=== PATIENT | female | born 1990 | race Caucasian/White ===

== ENCOUNTER 2020-07-12 14:23 | Outpatient (CLI) | payer BC, SELFPAY ==
[2020-07-12 15:05] LABS: Hematocrit 35.1 % (37.0-47.0); Hemoglobin 11.9 g/dL (12.0-15.0); Mean Platelet Volume 9.7 fl (7.4-10.4); Platelet Count Result 242 k/mm3 (150-375)
[2020-07-12 15:47] LABS: Hemoglobin A1C 4.8 % (<5.7)
[2020-07-12 15:58] LABS: HIV 1/2 Ab P24 Ag Result Negative (Negative)
[2020-07-12 16:44] LABS: Rubella IgG Antibody 59.3 IU/ML
[2020-07-12 16:59] LABS: Hepatitis B Surface Anti Res Negative; Hepatitis C Virus Antibody Negative (Negative)
[2020-07-13 07:11] LABS: Rapid Plasma Reagin Non-Reactive (NonReactive)
== END 2020-07-12 14:24 | disposition home or self-care (01) ==
LOC: ANHLAB 14:28
PROVIDERS: PCP Family Medicine; Visit Provider Obstetrics & Gynecology
DX: Z36.89 Encounter for other specified antenatal screening (principal)
CPT/HCPCS: 36415; 83036; 85014; 85018; 85049; 86592; 86703; 86706; 86762; 86803; 86850; 86900; 86901; G0432

== ENCOUNTER 2021-01-03 09:30 | Outpatient (CLI) | payer BC, SELFPAY ==
[2021-01-03 10:26] VITALS: BP 125/77; PULSE 114
--- NOTE | 2021-01-03 11:38 | PC.NURSE ---
1025-S.Neli [facility] called, informed ROM plus is negative. Order received to set pt up for induction the evening on Jan 18 and discharge home now.
--- NOTE | 2021-01-03 11:39 | PC.NURSE ---
0930-Pt was sent over from the office for possible leaking of fluid. Order received for ROM plus and SVE.
--- NOTE | 2021-01-03 11:40 | PC.NURSE ---
1020-SVE is 1/50%
== END 2021-01-03 10:30 | disposition home or self-care (01) ==
LOC: ANHOBOP 10:15 → ANHOBPP 10:16
PROVIDERS: PCP Family Medicine; Visit Provider Obstetrics & Gynecology
DX: O42.90 Premature rupture of membranes, unspecified as to length of time between rupture and onset of labor, unspecified weeks of gestation (principal); Z3A.00 Weeks of gestation of pregnancy not specified
CPT/HCPCS: 59025; 84112; 99199

== ENCOUNTER 2021-01-17 10:09 | Inpatient (IN) | payer BC, SELFPAY ==
[2021-01-17] VITALS (194 sets, daily range): BP systolic 60–128; BP diastolic 37–97; PULSE 30–209; RESP 16; TEMP 36.4–37.4; O2SAT 77–100; BMI 32.5
--- NOTE | 2021-01-17 10:51 | LDADM ---
This patient, Heydi Owens, was admitted to Labor/Delivery/Recovery 106 on 01/17/21 at 10:09. Plans for labor, pain management and were discussed with patient. Patient/family oriented to hospital policies and general routines including ID bracelet, bed and alarms, visiting hours, pain management, procedures, bathroom and other care routines, personal items, smoking policy, room service/diet and guest tray routines, infant security routines, and visiting hours. Patient/Family are encouraged to report perceived risks to care and to ask questions if they do not understand what they are told or what they should do. See OBIX for further documentation.
[2021-01-17] MEDS: LACTATED RINGERS 1,000 ML 125 ML IV CONT ×2 (10:59→11:25)
[2021-01-17] MEDS: AMPICILLIN 2 GM/NS 100 ML 2 GM/100 ML BAG IVPB (11:00)
[2021-01-17 11:19] LABS: Basophils Absolute Auto 0.1 K/mm3 (0.0-0.1); Basophils Percent Auto 0.6 % (0.2-1.2); Eosinophils Absolute Auto 0.2 K/mm3 (0-0.3); Eosinophils Percent Auto 1.4 % (0-4.4); Hematocrit 38.6 % (37.0-47.0); Hemoglobin 12.5 g/dL (12.0-15.0); Immature Granulocyte Absolute 0.11 K/mm3 (0.00-0.031); Immature Granulocyte Percent A 0.9 % (0-0.5); Lymphocytes Absolute Auto 1.94 K/mm3 (0.9-3.2); Lymphocytes Percent Auto 16.5 % (18.3-44.2); Mean Corpuscular HGB Conc 32.4 g/dl (32-36); Mean Corpuscular Hemoglobin 29.7 pg (26-34); Mean Corpuscular Volume 91.7 fl (80-100); Mean Platelet Volume 10.7 fl (7.4-10.4); Monocytes Absolute Auto 0.6 K/mm3 (0.1-0.6); Monocytes Percent Auto 5.4 % (2.6-8.5); Neutrophils Absolute Auto 8.9 K/mm3 (1.3-6.7); Neutrophils Percent Auto 75.2 % (45.5-73.1); Platelet Count Result 215 k/mm3 (150-375); Red Blood Count 4.21 M/mm3 (4.2-5.4); Red Cell Distribution Width 14.6 % (11.5-14.5); White Blood Count 11.8 K/mm3 (4.5-10.0)
--- NOTE | 2021-01-17 11:47 | P.PNAN_ITS ---
Anes - Eval Pre Procedure Procedure: Labor Epidural Date/Time: 01/17/21 11:47 Surgeon: Vito Preop Diagnosis: Labor Pain Pre Op Diagnosis: iol Patient Data Age: 30 Gender: F Height: 1.63 m Weight: 86 kg Last Vital Signs Pulse 83 01/17/21 11:45 BP 122/69 01/17/21 11:45 Pulse Ox 100 01/17/21 11:45 Allergies Allergy/AdvReac Type Severity Reaction Status Date / Time codeine AdvReac Nausea and Verified 01/17/21 10:47 Vomiting Home Medications Medication Instructions Recorded Confirmed Type ferrous sulfate 143 mg PO DAILY 12/19/20 01/17/21 History prenat.vits,subhash,[id number]-sfvu-ejpof 1 tablet PO DAILY 12/19/20 01/17/21 History [ #2] Laboratory Tests 01/17/21 01/17/21 10:31 10:32 WBC 11.8 K/mm3 H K/mm3 (4.5-10.0) RBC 4.21 M/mm3 M/mm3 (4.2-5.4) Hgb 12.5 g/dL g/dL (12.0-15.0) Hct 38.6 % % (37.0-47.0) MCV 91.7 fl fl (80-100) MCH 29.7 pg pg (26-34) MCHC 32.4 g/dl g/dl (32-36) RDW 14.6 % H % (11.5-14.5) Plt Count 215 k/mm3 k/mm3 (150-375) MPV 10.7 fl H fl (7.4-10.4) Immature Gran % (Auto) 0.9 % H % (0-0.5) Neut % (Auto) 75.2 % H % (45.5-73.1) Lymph % (Auto) 16.5 % L % (18.3-44.2) [place] % (Auto) 5.4 % % (2.6-8.5) Eos % (Auto) 1.4 % % (0-4.4) Baso % (Auto) 0.6 % % (0.2-1.2) Lymph # (Auto) 1.94 K/mm3 K/mm3 (0.9-3.2) [place] # (Auto) 0.6 K/mm3 K/mm3 (0.1-0.6) Eos # (Auto) 0.2 K/mm3 K/mm3 (0-0.3) Baso # (Auto) 0.1 K/mm3 K/mm3 (0.0-0.1) Abs Immat Gran (auto) 0.11 K/mm3 H K/mm3 (0.00-0.031) Absolute Neuts (auto) 8.9 K/mm3 H K/mm3 (1.3-6.7) Absolute Nucleated RBC 0.0 K/mm3 K/mm3 (0.0-0.012) Nucleated RBC % 0.0 % % (0.0-0.2) RPR Pending : gestational age (CARLOS 01/19/21, ) Patient hx anesthesia problems: none Family hx anesthesia problems: none [facility] Family History Family History Grandparent Cancer Pacemaker Type 2 diabetes mellitus Kidney stones Mother Hypothyroidism Social History Social History Smoking status: Never smoker Second hand tobacco smoke exposure: No Substance use: never Spiritual care concerns: No Exam Day of Procedure 01/17/21 11:47
--- NOTE | 2021-01-17 11:48 | P.PNAN_ITS ---
Anes - Eval Pre Procedure Procedure: Labor Epidural Date/Time: 01/17/21 11:48 Surgeon: Vito Preop Diagnosis: Labor Pain Pre Op Diagnosis: iol Patient Data Age: 30 Gender: F Height: 1.63 m Weight: 86 kg Last Vital Signs Pulse 85 01/17/21 11:47 BP 117/68 01/17/21 11:47 Pulse Ox 100 01/17/21 11:45 Allergies Allergy/AdvReac Type Severity Reaction Status Date / Time codeine AdvReac Nausea and Verified 01/17/21 10:47 Vomiting Home Medications Medication Instructions Recorded Confirmed Type ferrous sulfate 143 mg PO DAILY 12/19/20 01/17/21 History prenat.vits,subhash,qkh-cgil-mvnrn 1 tablet PO DAILY 12/19/20 01/17/21 History [ #2] Laboratory Tests 01/17/21 01/17/21 10:31 10:32 WBC 11.8 K/mm3 H K/mm3 (4.5-10.0) RBC 4.21 M/mm3 M/mm3 (4.2-5.4) Hgb 12.5 g/dL g/dL (12.0-15.0) Hct 38.6 % % (37.0-47.0) MCV 91.7 fl fl (80-100) MCH 29.7 pg pg (26-34) MCHC 32.4 g/dl g/dl (32-36) RDW 14.6 % H % (11.5-14.5) Plt Count 215 k/mm3 k/mm3 (150-375) MPV 10.7 fl H fl (7.4-10.4) Immature Gran % (Auto) 0.9 % H % (0-0.5) Neut % (Auto) 75.2 % H % (45.5-73.1) Lymph % (Auto) 16.5 % L % (18.3-44.2) [place] % (Auto) 5.4 % % (2.6-8.5) Eos % (Auto) 1.4 % % (0-4.4) Baso % (Auto) 0.6 % % (0.2-1.2) Lymph # (Auto) 1.94 K/mm3 K/mm3 (0.9-3.2) [place] # (Auto) 0.6 K/mm3 K/mm3 (0.1-0.6) Eos # (Auto) 0.2 K/mm3 K/mm3 (0-0.3) Baso # (Auto) 0.1 K/mm3 K/mm3 (0.0-0.1) Abs Immat Gran (auto) 0.11 K/mm3 H K/mm3 (0.00-0.031) Absolute Neuts (auto) 8.9 K/mm3 H K/mm3 (1.3-6.7) Absolute Nucleated RBC 0.0 K/mm3 K/mm3 (0.0-0.012) Nucleated RBC % 0.0 % % (0.0-0.2) RPR Pending : gestational age (CARLOS 01/19/21, ) Patient hx anesthesia problems: none Family hx anesthesia problems: none [facility] Family History Family History Grandparent Cancer Pacemaker Type 2 diabetes mellitus Kidney stones Mother Hypothyroidism Social History Social History Smoking status: Never smoker Second hand tobacco smoke exposure: No Substance use: never Spiritual care concerns: No Exam Day of Procedure 01/17/21 11:48 Patient weight: normal Heart: regular rate and rhythm Lungs: normal air movement Airway: Mallampati scale class II Neurological: alert and oriented
--- NOTE | 2021-01-17 12:23 | WPDOBADMIT ---
Obstetrics - Admit Note Admission Note: record reviewed. No pertinent additions to the history and/or any subsequent changes in the physical findings that are not consistent with the expected course of the were found. Pt arrived in labor after SROM, meconium fluid, per RN 8-9 cm, GBS positive Additions to the history and/or subsequent changes in the physical findings follow. None.
[2021-01-17] MEDS: AMPICILLIN 1 GM/NS 50 ML 1 GM/50 ML BAG IVPB (14:55)
[2021-01-17] MEDS: OXYTOCIN 30 UNITS/NS 500 ML 30 UNITS/500 ML BAG 999 UNITS IV CONT (18:20)
[2021-01-17] MEDS: miSOPROStol 200 MCG TABLET 1000 MCG (18:30)
[2021-01-17] MEDS: WATER FOR IRRIGATION, STERILE 1,000 ML BOTTLE 1000 ML (18:30)
[2021-01-17] MEDS: LACTATED RINGERS 1,000 ML 200 ML IV CONT (18:35)
[2021-01-17] MEDS: METHYLERGONOVINE MALEATE 0.2 MG/ML VIAL IM (18:37)
[2021-01-17] MEDS: ONDANSETRON INJ 4 MG/2 ML VIAL IV PUSH (18:42)
[2021-01-17] MEDS: OXYTOCIN 30 UNITS/NS 500 ML 30 UNITS/500 ML BAG 125 UNITS IV CONT (18:54)
--- NOTE | 2021-01-17 19:08 | PM.OBPRVD ---
OB - Delivery Note Procedure Delivery date: 01/17/21 Procedure: vaginal delivery events: Foul Smelling Amniotic Fluid Induction method: none Delivery monitor: external FHT and external uterine Route of delivery: Laceration Description: Perineal - 2nd Degree Delivery repair: vicryl Specimen: Yes Quantitative Blood Loss (ml): 1,375 Anesthesia type: Epidural Disposition: floor Complications: after delivery of infant, uterus boggy, medication and massage ineffective, team ob callled and bakri balloon placed with 300 cc fluid, bleeding is now minimal. flannery catheter in place, dr. 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
[2021-01-17] MEDS: SODIUM CHLORIDE 0.9% IV 1,000 ML 30 ML IV CONT (19:49)
[2021-01-17] MEDS: ceFAZolin 2 GM/D5W 50 ML 2 GM/50 ML BAG IVPB (20:37)
[2021-01-17] MEDS: BENZOCAINE 20% AER SPR (*SP) 56 GM CAN 1 SPRAY TOPICAL (20:45)
[2021-01-17] MEDS: WITCH HAZEL 40 PADS 1 PAD TOPICAL (20:45)
[2021-01-17] MEDS: IBUPROFEN 600 MG TABLET PO (20:45)
--- NOTE | 2021-01-17 22:29 | OBPPTRN ---
Patient transferred to post room #283 via bed. Support person present. Oriented to unit, room, information board, rooming in, admission packet and security measures. Patient verbalizes understanding.
[2021-01-18 01:00] VITALS: BP 104/63; PULSE 96; RESP 16; TEMP 37.2; O2SAT 98
[2021-01-18 01:13] LABS: Basophils Percent Auto 0.2 % (0.2-1.2); Hematocrit 25.2 % (37.0-47.0); Hemoglobin 8.5 g/dL (12.0-15.0); Immature Granulocyte Absolute 0.12 K/mm3 (0.00-0.031); Immature Granulocyte Percent A 0.6 % (0-0.5); Lymphocytes Absolute Auto 1.46 K/mm3 (0.9-3.2); Lymphocytes Percent Auto 7.8 % (18.3-44.2); Mean Corpuscular HGB Conc 33.7 g/dl (32-36); Mean Corpuscular Hemoglobin 30.5 pg (26-34); Mean Corpuscular Volume 90.3 fl (80-100); Mean Platelet Volume 10.4 fl (7.4-10.4); Monocytes Percent Auto 5.1 % (2.6-8.5); Neutrophils Absolute Auto 16.2 K/mm3 (1.3-6.7); Neutrophils Percent Auto 86.3 % (45.5-73.1); Platelet Count Result 198 k/mm3 (150-375); Red Blood Count 2.79 M/mm3 (4.2-5.4); Red Cell Distribution Width 14.5 % (11.5-14.5); White Blood Count 18.7 K/mm3 (4.5-10.0)
[2021-01-18 01:17] LABS: Prothrombin Time 12.9 Seconds (11.1-14.7)
[2021-01-18 01:18] LABS: Partial Thromboplastin Time 25.7 SECONDS (22.3-36.8)
[2021-01-18 01:23] LABS: Fibrinogen 294 mg/dl (215-510)
[2021-01-18 01:35] LABS: D Dimer 4.02 ug/mL (<0.48)
[2021-01-18 05:00] VITALS: BP 103/63; PULSE 89; RESP 16; TEMP 36.6; O2SAT 98
[2021-01-18 05:39] LABS: Hematocrit 26.9 % (37.0-47.0); Hemoglobin 8.4 g/dL (12.0-15.0)
[2021-01-18 07:15] VITALS: BP 112/67; PULSE 93; RESP 18; TEMP 36.9
--- NOTE | 2021-01-18 09:01 | PM.OBPNVD ---
OB - PN: Subj Subjective Date/time seen: 01/18/21 09:02 Patient comments: no complaints, pain well controlled, incisional pain, tolerating diet and flatus present OB - PN: Obj Data Labs CBC & Chem 7: 01/18/21 05:32 Labs: Laboratory Results - last 24 hr 01/17/21 01/17/21 01/18/21 10:31 14:02 01:03 WBC 11.8 H 18.7 H RBC 4.21 2.79 L Hgb 12.5 8.5 L D Hct 38.6 25.2 L MCV 91.7 90.3 MCH 29.7 30.5 MCHC 32.4 33.7 RDW 14.6 H 14.5 Plt Count 215 198 MPV 10.7 H 10.4 Immature Gran % (Auto) 0.9 H 0.6 H Neut % (Auto) 75.2 H 86.3 H Lymph % (Auto) 16.5 L 7.8 L [place] % (Auto) 5.4 5.1 Eos % (Auto) 1.4 0.0 Baso % (Auto) 0.6 0.2 Lymph # (Auto) 1.94 1.46 [place] # (Auto) 0.6 1.0 H Eos # (Auto) 0.2 0.0 Baso # (Auto) 0.1 0.0 Abs Immat Gran (auto) 0.11 H 0.12 H Absolute Neuts (auto) 8.9 H 16.2 H Absolute Nucleated RBC 0.0 0.0 Nucleated RBC % 0.0 0.0 PT INR APTT Fibrinogen D-Dimer Blood Type O Positive Antibody Screen Negative 01/18/21 01/18/21 01:03 05:32 WBC RBC Hgb 8.4 L Hct 26.9 L MCV MCH MCHC RDW Plt Count MPV Immature Gran % (Auto) Neut % (Auto) Lymph % (Auto) [place] % (Auto) Eos % (Auto) Baso % (Auto) Lymph # (Auto) [place] # (Auto) Eos # (Auto) Baso # (Auto) Abs Immat Gran (auto) Absolute Neuts (auto) Absolute Nucleated RBC Nucleated RBC % PT 12.9 INR 1.0 APTT 25.7 Fibrinogen 294 D-Dimer 4.02 H Blood Type Antibody Screen OB - PN A/P Plan day: 1 Plan: routine care Comments: No problems, routine care, Balkari and flannery removed Time Spent With Patient Time: Total time spent is greater than 50% in coordination of care (as documented) at patient's floor/unit and/or counseling patient: Exam Const: General: comfortable, no acute distress and alert Resp: Effort & Inspection: normal respiratory effort Auscultation: no crackles, no rales and no rhonchi Cardio: Rate: regular rate Heart sounds: no click, no murmurs and no rubs GI: Inspection: non-distended GI Palp: No Tenderness to palpation present (GI) Auscultation: normal bowel sounds Other: Incision - CDI Extrem: General: normal to inspection, no pedal edema and no calf tenderness
[2021-01-18] MEDS: DOCUSATE SODIUM 100 MG CAPSULE PO ×2 (09:27→18:35)
[2021-01-18] MEDS: IBUPROFEN 600 MG TABLET PO ×2 (09:27→18:36)
[2021-01-18] MEDS: POLYSACCHARIDE IRON COMPLEX 150 MG CAPSULE PO ×2 (09:28→18:35)
[2021-01-18 09:29] LABS: Rapid Plasma Reagin Non-Reactive (NonReactive)
--- NOTE | 2021-01-18 09:46 | WPDANLDPN2 ---
Anes-Prog Note L&D Date/Time: 01/18/21 09:46 Comfortable throughout: labor and delivery Neuraxial method: epidural Epidural/Spinal procedure site: clean & non-tender Neuro status: Neuro function grossly intact. Cardiovascular status: normal Respiratory status: normal Airway patency: baseline Mental status: baseline Post-Op hydration status: normal Vital Signs: Last Vital Signs Temp 36.9 C 01/18/21 07:15 Pulse 93 01/18/21 07:15 Resp 18 01/18/21 07:15 BP 112/67 01/18/21 07:15 Pulse Ox 98 01/18/21 05:00 Pain score (VAS): 0 I/O: Intake & Output 01/17/21 01/18/21 01/18/21 23:59 07:59 15:59 Intake Total 500 Output Total 150 611 250 Balance 350 -611 -250 Post-procedural complaints: none Patient feedback: Patient satisfied with anesthetic care.
[2021-01-18 12:10] VITALS: BP 107/60; PULSE 98; RESP 16; TEMP 36.6; O2SAT 99
[2021-01-18 16:00] VITALS: BP 114/69; PULSE 103; RESP 18; TEMP 36.9
[2021-01-18 20:00] VITALS: BP 113/67; PULSE 99; RESP 16; TEMP 37.1; O2SAT 100
--- NOTE | 2021-01-19 07:32 | PM.OBPNVD ---
OB - PN: Subj Subjective Date/time seen: 01/19/21 07:32 Patient comments: no complaints baby status: doing well OB - PN: Obj Data Labs CBC & Chem 7: 01/18/21 05:32 Labs: Laboratory Results - last 24 hr 01/17/21 10:32 RPR Non-reactive OB - PN A/P Plan day: 2 Plan: routine care and discharge home Time Spent With Patient Time: Total time spent is greater than 50% in coordination of care (as documented) at patient's floor/unit and/or counseling patient: Review of Systems Review of Systems: All systems reviewed & are unremarkable except as noted in HPI and below Exam Const: General: cooperative Psych: Affect: normal affect Attitude: cooperative Thought process: Normal thought process present Thought content: Yes Normal thought content present Insight: Good insight present (Psych)
--- NOTE | 2021-01-19 07:34 | PM.OBDSVD ---
DS: Admitting Diagnosis Admitting Diagnosis labor OB - DS: Summary OB Procedures : None OB Procedures Intrapartum: Spontaneous Vag Delivery OB Procedures: : Other (pp hemorrhage, bakri) Time Spent with Patient Time attestation: Total time spent providing and/or coordinating discharge services: DS: Data Data Completed and Pending Pending studies at discharge: Pending at discharge 01/17/21 18:21 Surgical [PTH] Routine Labs on day of discharge: Labs from last 24 hours 01/17/21 10:32 RPR Non-reactive Discharge Plan Discharge Attending physician on discharge: Flaco Padron Discharging Clinician: Kaitlin Quinteros Patient Disposition: Home, Self-Care Activity: pelvic rest Diet: regular Patient Instructions: Antibiotic Form Stand Alone Forms: General Discharge Information Follow-up/Referrals: Kaitlin Quinteros CNM [Certified Nurse Clinical Biostatistics Director] - 4 Weeks Discharge Medications: Continued #2 Tablet 1 tablet PO DAILY RF: 0 ferrous sulfate 143 mg (45 mg iron) Tablet Extended Release 143 mg PO DAILY RF: 0 Date of admission: 01/17/21 10:09 Primary Care Provider: ClintonMonster Admitting Provider: Flaco Padron Attending physician on admission: Flaco Padron Condition: Stable
[2021-01-19 07:55] VITALS: BP 112/68; PULSE 94; RESP 16; TEMP 36.2; O2SAT 100
[2021-01-19] MEDS: POLYSACCHARIDE IRON COMPLEX 150 MG CAPSULE PO (09:53)
[2021-01-19] MEDS: DOCUSATE SODIUM 100 MG CAPSULE PO (09:54)
[2021-01-19] MEDS: WITCH HAZEL 40 PADS 1 PAD TOPICAL (10:08)
--- NOTE | 2021-01-19 12:19 | PC.NURSE ---
1200 Mother and baby discharged papers presented to parents; they stated they read the papers and mother signed papers in understanding.
[2021-01-22 11:24] VITALS: BP 112/72; PULSE 100; RESP 20; TEMP 37.2; O2SAT 100
== END 2021-01-19 12:40 | disposition home or self-care (01) | DRG 806 ==
LOC: ANHLDR 12:23 → ANHOB2 23:28
PROVIDERS: Advanced Practice Midwife; Admitting Provider Obstetrics & Gynecology; PCP Family Medicine; Visit Provider Obstetrics & Gynecology
DX: O77.0 Labor and delivery complicated by meconium in amniotic fluid (principal); O72.1 Other immediate postpartum hemorrhage; Z37.0 Single live birth; O70.1 Second degree perineal laceration during delivery; O69.81X0 Labor and delivery complicated by cord around neck, without compression, not applicable or unspecified; O67.9 Intrapartum hemorrhage, unspecified; O99.824 Streptococcus B carrier state complicating childbirth; Z3A.39 39 weeks gestation of pregnancy
CPT/HCPCS: 36415; 84112; 85014; 85018; 85025; 85380; 85384; 85610; 85730; 86592; 86850; 86900; 86901; 88307; A9270; J0290; J0690; J2210; J2405; J2590; J2795; J7030; J7120

== ENCOUNTER 2022-01-19 06:03 | Inpatient (IN) | payer BC, SELFPAY ==
[2022-01-19] VITALS (116 sets, daily range): BP systolic 69–140; BP diastolic 38–121; PULSE 73–221; RESP 18; TEMP 36.2–36.9; O2SAT 82–100; BMI 31.8
--- OUTSIDE RECORDS SUMMARY | 2022-01-19 06:09 | XMS_ITS | Encounter Summary ---
:1990 Author Care Team Providers Name Role Phone Monster Garcia Primary Care Provider [phone] Reason for Visit OB visit OB [id number] EDC 01/26/2022 LMP 04/25/2021 Assessment and Plan Assessment Note Patient is __36_weeks . Discuss ed plan. 1. Routine care Discussion Note: None recorded.Patient educational handouts: No information available. Plan of Care Reminders Provider Appointments [facility] on or around 06/06/2022 ? Lab None recorded. ? ? Referral None recorded. ? ? Procedures None recorded. ? ? Surgeries None recorded. ? ? Imaging None recorded. ? ? Medications Name Start Date ? ? Advair HFA 115 mcg-21 mcg/actuation aerosol inhaler ? Inhale 2 puffs twice a day by inhalation route. albuterol sulfate HFA 90 mcg/actuation aerosol inhaler ? INHALE 2 PUFFS BY MOUTH EVERY 4 HOURS fluconazole 150 mg tablet ? TAKE 1 TABLET BY MOUTH NOW AND 1 TABLET IN 48 HOURS ID NOW COVID-19 Test Kit ? TEST DIRECTED TODAY iron ? montelukast 10 mg tablet ? TAKE 1 TABLET BY MOUTH EVERY DAY AT BEDTIME ondansetron 8 mg disintegrating tablet ? DISSOLVE 1 TABLET ON THE TONGUE TWICE DAILY ? scopolamine 1 mg over 3 days transdermal patch ? APPLY 1 PATCH TOPICALLY TO THE SKIN EVERY 72 HOURS Symbicort 160 mcg-4.5 mcg/actuation HFA aerosol inhale r ? Inhale 2 puffs twice a day by inhalation route. Medications Administered None recorded. Vitals Height Weight BMI Blood Pressure 5 ft 3.5 in 193 lbs 33.7 kg/m2 111/68 mm[Hg] Results
--- OUTSIDE RECORDS SUMMARY | 2022-01-19 06:09 | XMS_ITS ---
:1990 Author Care Team Providers Name Role Phone PRIYANKA SPENCER Primary Care Provider [phone] Allergies Code Code System Name Reaction Severity Status Onset 2670 RxNorm Codeine Abdominal Pain ? Active ? Medications Name Status Start Date Stop Date ? ? Advair HFA 115 mcg-21 mcg/actuation aerosol inhaler Active ? Not available albuterol sulfate HFA 90 mcg/actuation aerosol inhaler Active ? Not available INHALE 2 PUFFS BY MOUTH EVERY 4 HOURS cephalexin 500 mg capsule Completed ? 2021 TAKE 1 CAPSULE BY MOUTH TWICE DAILY FOR 7 DAYS fluconazole 150 mg tablet Active ? Not av ailable TAKE 1 TABLET BY MOUTH NOW AND 1 TABLET IN 48 HOURS ibuprofen 600 mg tablet Completed ? 02/22/20 20 ID NOW COVID-19 Test Kit Active ? Not dariela ilable TEST DIRECTED TODAY iron Active ? Not available Junel FE 07/05 (28) 1 mg-20 mcg (21)/75 mg (7) tablet Completed ? 06/21/2020 Lo Loestrin Fe 1 mg-10 mcg (24)/10 mcg (2) tablet Completed ? 06/21/2020 Metamucil Completed ? 08/08/2020 montelukast 10 mg tablet Active ? Not dariela ilable TAKE 1 TABLET BY MOUTH EVERY DAY AT BEDTIME nitrofurantoin monohydrate/macrocrystals 100 mg capsule Complete d ? 08/08/2020 TAKE 1 CAPSULE BY MOUTH EVERY 12 HOURS ondansetron 8 mg disintegrating tablet Active ? Not available DISSOLVE 1 TABLET ON THE TONGUE TWICE DAILY oxycodone-acetaminophen 5 mg-325 mg tablet Completed ? 02/22/2020 Active ? Not available scopolamine 1 mg over 3 days transdermal patch Active ? Not available Symbicort 160 mcg-4.5 mcg/actuation HFA aerosol inhaler Active ? Not available Tri-Ashia Completed ?
--- OUTSIDE RECORDS SUMMARY | 2022-01-19 06:09 | XMS_ITS | Encounter Summary ---
:1990 Author Care Team Providers Name Role Phone Monster Leetchett Primary Care Provider [phone] Reason for Visit OB visit Assessment and Plan Assessment Note Patient is ___weeks . Discussed plan. 1. Routine care Discussion Note: None [...] BMI Blood Pressure 5 ft 3.5 in 191 lbs 33.3 kg/m2 114/77 mm[Hg] Results Lab Results
--- OUTSIDE RECORDS SUMMARY | 2022-01-19 06:09 | XMS_ITS | Encounter Summary ---
:1990 Author Care Team Providers Name Role Phone Monster Garcia Primary Care Provider [phone] Reason for Visit OB visit OB [id number] EDC 01/26/2022 LMP 04/25/2021 Assessment and Plan 1. Routine care Discussion Note: None recorded.Patient [...] BMI Blood Pressure 5 ft 3.5 in 192 lbs 33.5 kg/m2 117/73 mm[Hg] Results Lab Results None recorded. Allergies Code Code System Nam
--- OUTSIDE RECORDS SUMMARY | 2022-01-19 06:09 | XMS_ITS | Encounter Summary ---
:1990 Author Care Team Providers Name Role Phone Monster Garcia Primary Care Provider [phone] Reason for Visit OB visit OB [id number] EDC 01/26/2022 LMP 04/25/2021 Assessment and Plan Assessment Note Patient is _35__weeks . Discuss ed plan. 1. Routine care [...] BMI Blood Pressure 5 ft 3.5 in 190 lbs 33.1 kg/m2 106/72 mm[Hg] Results
--- OUTSIDE RECORDS SUMMARY | 2022-01-19 06:09 | XMS_ITS | Encounter Summary ---
:1990 Author Care Team Providers Name Role Phone Monster Garcia Primary Care Provider [phone] Reason for Visit None recorded. Assessment and Plan 1. Uterine size for dates discrepancy ? US, obstetric, follow-up Discussion Note: None recorded.Patient educational handouts: No information available. Plan of Care Reminders Provider Appointments [facility] on or around 06/06/2022 ? Lab None recorded. ? ? Referral None recorded. ? ? Procedures None recorded. ? ? Surgeries None recorded. ? ? Imaging US, Obstetric, Follow-up 12/06/2021 Amanda campos Medications Name Start Date ? ? Advair [...] inhalation route. Medications Administered None recorded. Vitals None recorded. Results Lab Results None recorded. Allergies Code Code System Name Reaction Severity Onset 2670 RxNorm Codeine Abdominal Pain ? ? Problems
--- OUTSIDE RECORDS SUMMARY | 2022-01-19 06:09 | XMS_ITS | Encounter Summary ---
:1990 Author Care Team Providers Name Role Phone Monster Garcia Primary Care Provider [phone] Reason for Visit OB visit OB [id number] EDC 01/26/2022 LMP 04/25/2021 Assessment and Plan Assessment Note Patient is _34__weeks . Discuss ed plan. 1. Routine care [...] ft 3.5 in 191 lbs 33.3 kg/m2 113/73 mm[Hg] Results
--- OUTSIDE RECORDS SUMMARY | 2022-01-19 06:10 | XMS_ITS | Encounter Summary ---
:1990 Author Care Team Providers Name Role Phone Monster Garcia Primary Care Provider [phone] Reason for Visit None recorded. Assessment and Plan 1. Routine care Discussion [...] BMI Blood Pressure 5 ft 3.5 in 189 lbs 33 kg/m2 123/73 mm[Hg] Results Lab Results None recorded. Allergies Code Code System Name Reaction Severity Onset 4867 RxNorm Code
--- OUTSIDE RECORDS SUMMARY | 2022-01-19 06:10 | XMS_ITS | Encounter Summary ---
:1990 Author Care Team Providers Name Role Phone Monster Garcia Primary Care Provider [phone] Reason for Visit OB visit Assessment and Plan Assessment Note Patient is ___weeks . Discussed plan. 1. Asthma ? budesonide-formoterol HFA 160 mcg-4.5 mcg/actuation aerosol inhaler Discussion Note: None recorded.Patient educational handouts: No [...] ft 3.5 in 190 lbs 33.1 kg/m2 111/68 mm[Hg] Results
--- OUTSIDE RECORDS SUMMARY | 2022-01-19 06:10 | XMS_ITS | Encounter Summary ---
:1990 Author Care Team Providers Name Role Phone Monster Garcia Primary Care Provider [phone] Reason for Visit None recorded. Assessment and Plan 1. Low lying placenta ? US, obstetric, follow-up Discussion Note: None recorded.Patient educational handouts: No information available. Plan of Care Reminders Provider Appointments [facility] on or around 06/06/2022 ? Lab None recorded. ? ? Referral None recorded. ? ? Procedures None recorded. ? ? Surgeries None recorded. ? ? Imaging US, Obstetric, Follow-up 11/09/2021 Amanda campos Medications Name Start Date ? [...]
--- NOTE | 2022-01-19 06:17 | LDADM ---
This patient, Heydi Owens, was admitted to Labor/Delivery/Recovery 106 on 01/19/22 at 06:03. Plans for labor, pain management and were discussed with patient. Patient/family oriented to hospital policies and general routines including ID bracelet, bed and alarms, visiting hours, pain management, procedures, bathroom and other care routines, personal items, smoking policy, room service/diet and guest tray routines, infant security routines, and visiting hours. Patient/Family are encouraged to report perceived risks to care and to ask questions if they do not understand what they are told or what they should do. See OBIX for further documentation.
--- NOTE | 2022-01-19 06:34 | WPDANESEPP ---
Anes - Eval Pre Procedure Procedure: labor epidural Date/Time: 01/19/22 06:34 Surgeon: evans Pre Op Diagnosis: Induction of Labor Patient Data Age: 31 Gender: F Height: 1.65 m Weight: 87 kg Last Vital Signs Pulse 108 H 01/19/22 06:21 BP 124/78 01/19/22 06:21 Allergies Allergy/AdvReac Type Severity Reaction Status Date / Time codeine AdvReac Nausea and Verified 12/31/21 15:38 Vomiting Home Medications Medication Instructions Recorded Confirmed Type ferrous sulfate 143 mg (45 mg 143 mg PO DAILY 12/19/20 01/17/21 History iron) tablet,extended release prenat.vits,subhash,wla-ueje-jieap 1 tablet PO DAILY 12/19/20 01/17/21 History fluticasone propionate 115 2 puff inhalation BID 12/31/21 12/31/21 History mcg-salmeterol 21 mcg/actuation HFA inhaler (Advair HFA) montelukast 10 mg tablet 10 mg PO HS 12/31/21 12/31/21 History Patient hx anesthesia problems: none Family hx anesthesia problems: none Results Review: All pre-operative results and documents have been reviewed as part of the pre-operative evaluation. [facility] Family History Family History Grandparent Cancer Pacemaker Type 2 diabetes mellitus Kidney stones Mother Hypothyroidism Social History Social History Smoking status: Never smoker Second hand tobacco smoke exposure: No Substance use: never Spiritual care concerns: No Exam Day of Procedure 01/19/22 06:34
[2022-01-19 06:48] LABS: Basophils Absolute Auto 0.1 K/mm3 (0.0-0.1); Basophils Percent Auto 0.7 % (0.2-1.2); Eosinophils Absolute Auto 0.2 K/mm3 (0-0.3); Eosinophils Percent Auto 2.1 % (0-4.4); Hematocrit 32.5 % (37.0-47.0); Hemoglobin 10.4 g/dL (12.0-15.0); Immature Granulocyte Absolute 0.07 K/mm3 (0.00-0.031); Immature Granulocyte Percent A 0.8 % (0-0.5); Lymphocytes Absolute Auto 2.52 K/mm3 (0.9-3.2); Lymphocytes Percent Auto 29.1 % (18.3-44.2); Mean Corpuscular Hemoglobin 28.4 pg (26-34); Mean Corpuscular Volume 88.8 fl (80-100); Mean Platelet Volume 10.4 fl (7.4-10.4); Monocytes Absolute Auto 0.6 K/mm3 (0.1-0.6); Monocytes Percent Auto 7.2 % (2.6-8.5); Neutrophils Absolute Auto 5.2 K/mm3 (1.3-6.7); Neutrophils Percent Auto 60.1 % (45.5-73.1); Platelet Count Result 203 k/mm3 (150-375); Red Blood Count 3.66 M/mm3 (4.2-5.4); Red Cell Distribution Width 15.1 % (11.5-14.5); White Blood Count 8.7 K/mm3 (4.5-10.0)
[2022-01-19] MEDS: LACTATED RINGERS 1,000 ML 125 ML IV CONT (06:52)
[2022-01-19] MEDS: AMPICILLIN 2 GM/NS 100 ML 2 GM/100 ML BAG IVPB (06:53)
[2022-01-19] MEDS: OXYTOCIN 30 UNITS/NS 500 ML 30 UNITS/500 ML BAG IV CONT (06:56)
--- NOTE | 2022-01-19 08:36 | WPDOBADMIT ---
Obstetrics - Admit Note Admission Note: record reviewed. No pertinent additions to the history and/or any subsequent changes in the physical findings that are not consistent with the expected course of the were found. elective IOL, SVE /-2 AROM minimal amount of clear odorless fluid Additions to the history and/or subsequent changes in the physical findings follow. None.
[2022-01-19] MEDS: LACTATED RINGERS 1,000 ML 999 ML IV CONT (08:55)
[2022-01-19] MEDS: miSOPROStol 200 MCG TABLET 1000 MCG RECTAL (10:42)
--- NOTE | 2022-01-19 10:59 | PM.OBPRVD ---
OB - Delivery Note Procedure Delivery date: 01/19/22 Procedure: Vaginal delivery Events: Positive Group B Strep (GBS) Induction method: AROM and Per Pitocin Protocol Delivery monitor: External FHT and External Uterine Route of delivery: Episiotomy description: None Laceration Description: Perineal - 2nd Degree Delivery repair: vicryl Specimen: No Quantitative Blood Loss (ml): 250 Anesthesia type: Epidural Disposition: Floor Baby Date of : 01/19/22 Time of : 10:38 Weeks of gestation at delivery: 39 Infant gender: Male Weight (pounds): 8 Weight (ounces): 3 presentation: vertex position: Left Occiput Anterior Placenta delivery description: Spontaneous Cord Vessel Description: 3 Vessels, Nuchal Cord (x1), Loose, Reduced and Delayed Cord Clamping (1 min.) score one minute: 8 score five minutes: 9 Narrative: mom and baby skin to skin in stable condition.
[2022-01-19] MEDS: OXYTOCIN 30 UNITS/NS 500 ML 30 UNITS/500 ML BAG 125 UNITS IV CONT ×2 (11:10→11:52)
[2022-01-19] MEDS: METHYLERGONOVINE MALEATE 0.2 MG/ML VIAL IM (11:14)
[2022-01-19] MEDS: OXYTOCIN 10 UNITS/ML VIAL 20 UNITS (11:25)
[2022-01-19] MEDS: AMPICILLIN 1 GM/NS 50 ML 1 GM/50 ML BAG IVPB (11:27)
[2022-01-19] MEDS: TRANEXAMIC ACID 1,000MG/ISO100 1,000 MG/100 ML BAG 200 MG IVPB (11:35)
--- NOTE | 2022-01-19 11:59 | PM.OBPNVD ---
OB - PN: Subj Subjective Date/time seen: 01/19/22 11:59 called back into room with fundal check RN expelled large clots with slow continuous bleeding, fundus boggy even with massage, code ob called, see rn notes, bakri filled to 300cc and confirmed with us, pt stable bleeding minimal will leave bakri in for now and continue to monitor OB - PN: Obj Data Labs CBC & Chem 7: 01/19/22 06:38 Labs: Laboratory Results - last 24 hr 01/19/22 01/19/22 06:38 06:38 WBC 8.7 RBC 3.66 L Hgb 10.4 L Hct 32.5 L MCV 88.8 MCH 28.4 MCHC 32.0 RDW 15.1 H Plt Count 203 MPV 10.4 Immature Gran % (Auto) 0.8 H Neut % (Auto) 60.1 Lymph % (Auto) 29.1 [place] % (Auto) 7.2 Eos % (Auto) 2.1 Baso % (Auto) 0.7 Lymph # (Auto) 2.52 [place] # (Auto) 0.6 Eos # (Auto) 0.2 Baso # (Auto) 0.1 Abs Immat Gran (auto) 0.07 H Absolute Neuts (auto) 5.2 Absolute Nucleated RBC 0.0 Nucleated RBC % 0.0 Blood Type O Positive Antibody Screen Negative OB - PN A/P Time Spent With Patient Time: Total time spent is greater than 50% in coordination of care (as documented) at patient's floor/unit and/or counseling patient:
[2022-01-19 12:33] LABS: Basophils Absolute Auto 0.1 K/mm3 (0.0-0.1); Basophils Percent Auto 0.6 % (0.2-1.2); Eosinophils Absolute Auto 0.1 K/mm3 (0-0.3); Eosinophils Percent Auto 0.6 % (0-4.4); Hematocrit 34.2 % (37.0-47.0); Immature Granulocyte Absolute 0.09 K/mm3 (0.00-0.031); Immature Granulocyte Percent A 0.7 % (0-0.5); Lymphocytes Absolute Auto 1.63 K/mm3 (0.9-3.2); Lymphocytes Percent Auto 12.9 % (18.3-44.2); Mean Corpuscular HGB Conc 29.2 g/dl (32-36); Mean Corpuscular Hemoglobin 28.4 pg (26-34); Mean Corpuscular Volume 97.2 fl (80-100); Mean Platelet Volume 10.5 fl (7.4-10.4); Monocytes Absolute Auto 0.6 K/mm3 (0.1-0.6); Monocytes Percent Auto 4.4 % (2.6-8.5); Neutrophils Absolute Auto 10.2 K/mm3 (1.3-6.7); Neutrophils Percent Auto 80.8 % (45.5-73.1); Platelet Count Result 189 k/mm3 (150-375); Red Blood Count 3.52 M/mm3 (4.2-5.4); Red Cell Distribution Width 15.2 % (11.5-14.5); White Blood Count 12.7 K/mm3 (4.5-10.0)
[2022-01-19] MEDS: ONDANSETRON INJ 4 MG/2 ML VIAL IV PUSH (12:34)
[2022-01-19 12:46] LABS: INR 1.1; Partial Thromboplastin Time 26.2 SECONDS (22.3-36.8); Prothrombin Time 14.1 Seconds (11.1-14.7)
[2022-01-19 12:47] LABS: Fibrinogen 416 mg/dl (215-510)
[2022-01-19 12:51] LABS: D Dimer 2.35 ug/mL (<0.48)
[2022-01-19] MEDS: IBUPROFEN 600 MG TABLET PO (14:41)
--- NOTE | 2022-01-19 15:36 | PC.NURSE ---
1535--Report to Abdirahman Quinteros CNM re: pt. status, v.s. stable, lochia light with bakri balloon still in place. Orders that pt. may transfer to floor at this time.
--- NOTE | 2022-01-19 16:22 | PC.NURSE ---
1600--Fundus firm at U, 30cc lochia rubra drained from bakri balloon. A&O X3, pt. denies pain at this time. Waiting to give report and transfer pt. to room 281.
[2022-01-19 19:12] LABS: Hematocrit 27.4 % (37.0-47.0); Mean Corpuscular HGB Conc 32.8 g/dl (32-36); Mean Corpuscular Volume 88.4 fl (80-100); Mean Platelet Volume 10.6 fl (7.4-10.4); Platelet Count Result 191 k/mm3 (150-375); Red Cell Distribution Width 15.1 % (11.5-14.5); White Blood Count 12.9 K/mm3 (4.5-10.0)
[2022-01-19] MEDS: DOCUSATE SODIUM 100 MG CAPSULE PO (19:25)
[2022-01-19] MEDS: POLYSACCHARIDE IRON COMPLEX 150 MG CAPSULE PO (19:25)
--- NOTE | 2022-01-19 19:29 | OBPPTRN ---
1700-Patient transferred to post room #281 via wheelchair. Support person present. Oriented to unit, room, information board, rooming in, admission packet and security measures. Patient verbalizes understanding.
--- NOTE | 2022-01-19 22:29 | PC.NURSE ---
01/19/2022 at 1900. Epidural catheter and removed at this time. Blue tip noted and intact. Bandaid applied to area. Heating pad given to patient to aid in pain relief. Patient mentioned pain was relived after removal of the catheter and tape... There was a pulling feeling and that is gone now.
[2022-01-20 04:20] VITALS: BP 104/61; PULSE 84; RESP 16; TEMP 36; O2SAT 99
[2022-01-20 07:54] LABS: Hematocrit 28.3 % (37.0-47.0); Hemoglobin 8.8 g/dL (12.0-15.0)
[2022-01-20 08:35] VITALS: PULSE 88; RESP 18; O2SAT 100
[2022-01-20 09:00] VITALS: BP 114/69; PULSE 88; RESP 18; TEMP 36.3; O2SAT 100
[2022-01-20] MEDS: POLYSACCHARIDE IRON COMPLEX 150 MG CAPSULE PO (09:06)
[2022-01-20] MEDS: IBUPROFEN 600 MG TABLET PO (09:06)
[2022-01-20] MEDS: DOCUSATE SODIUM 100 MG CAPSULE PO (09:06)
--- NOTE | 2022-01-20 09:09 | P.PNOB_ITS ---
OB - PN: Subj Subjective Date/time seen: 01/20/22 09:09 s/p vaginal delivery day 1, pp hemorrhage at delivery, bleeding has been stable overnight OB - PN: Obj Data Labs CBC & Chem 7: 01/20/22 07:15 Labs: Laboratory Results - last 24 hr 01/19/22 01/19/22 01/19/22 06:38 12:26 12:26 WBC 12.7 H RBC 3.52 L Hgb 10.0 L Hct 34.2 L MCV 97.2 D MCH 28.4 MCHC 29.2 L RDW 15.2 H Plt Count 189 MPV 10.5 H Immature Gran % (Auto) 0.7 H Neut % (Auto) 80.8 H Lymph % (Auto) 12.9 L [place] % (Auto) 4.4 Eos % (Auto) 0.6 Baso % (Auto) 0.6 Lymph # (Auto) 1.63 [place] # (Auto) 0.6 Eos # (Auto) 0.1 Baso # (Auto) 0.1 Abs Immat Gran (auto) 0.09 H Absolute Neuts (auto) 10.2 H Absolute Nucleated RBC 0.0 Nucleated RBC % 0.0 PT 14.1 INR 1.1 APTT 26.2 Fibrinogen 416 D-Dimer 2.35 H Blood Type O Positive Antibody Screen Negative Crossmatch See Detail 01/19/22 01/20/22 19:08 07:15 WBC 12.9 H RBC 3.10 L Hgb 9.0 L 8.8 L Hct 27.4 L 28.3 L MCV 88.4 D MCH 29.0 MCHC 32.8 RDW 15.1 H Plt Count 191 MPV 10.6 H Immature Gran % (Auto) Neut % (Auto) Lymph % (Auto) [place] % (Auto) Eos % (Auto) Baso % (Auto) Lymph # (Auto) [place] # (Auto) Eos # (Auto) Baso # (Auto) Abs Immat Gran (auto) Absolute Neuts (auto) Absolute Nucleated RBC Nucleated RBC % PT INR APTT Fibrinogen D-Dimer Blood Type Antibody Screen Crossmatch OB - PN A/P Plan day: 1 Plan: routine care and discharge home Time Spent With Patient Time: Total time spent is greater than 50% in coordination of care (as documented) at patient's floor/unit and/or counseling patient: Review of Systems Review of Systems: All systems reviewed & are unremarkable except as noted in HPI and below Exam Const: General: cooperative, healthy appearing and comfortable
--- NOTE | 2022-01-20 09:11 | P.DS_ITS ---
DS: Admitting Diagnosis Discharge Date 01/20/22 Admitting Diagnosis IOL OB - DS: Summary OB Procedures : None OB Procedures Intrapartum: Spontaneous Vag Delivery OB Procedures: : Other (hemorrhage) Time Spent with Patient Time attestation: Total time spent providing and/or coordinating discharge services: DS: Data Data Completed and Pending Labs on day of discharge: Labs from last 24 hours 01/20/22 01/19/22 01/19/22 07:15 19:08 12:26 WBC 12.9 H RBC 3.10 L Hgb 8.8 L 9.0 L Hct 28.3 L 27.4 L MCV 88.4 D MCH 29.0 MCHC 32.8 RDW 15.1 H Plt Count 191 MPV 10.6 H Immature Gran % (Auto) Neut % (Auto) Lymph % (Auto) [place] % (Auto) Eos % (Auto) Baso % (Auto) Lymph # (Auto) [place] # (Auto) Eos # (Auto) Baso # (Auto) Abs Immat Gran (auto) Absolute Neuts (auto) Absolute Nucleated RBC Nucleated RBC % PT 14.1 INR 1.1 APTT 26.2 Fibrinogen 416 D-Dimer 2.35 H Blood Type Antibody Screen Crossmatch 01/19/22 01/19/22 12:26 06:38 WBC 12.7 H RBC 3.52 L Hgb 10.0 L Hct 34.2 L MCV 97.2 D MCH 28.4 MCHC 29.2 L RDW 15.2 H Plt Count 189 MPV 10.5 H Immature Gran % (Auto) 0.7 H Neut % (Auto) 80.8 H Lymph % (Auto) 12.9 L [place] % (Auto) 4.4 Eos % (Auto) 0.6 Baso % (Auto) 0.6 Lymph # (Auto) 1.63 [place] # (Auto) 0.6 Eos # (Auto) 0.1 Baso # (Auto) 0.1 Abs Immat Gran (auto) 0.09 H Absolute Neuts (auto) 10.2 H Absolute Nucleated RBC 0.0 Nucleated RBC % 0.0 PT INR APTT Fibrinogen D-Dimer Blood Type O Positive Antibody Screen Negative Crossmatch See Detail Discharge Plan Discharge Attending physician on discharge: Flaco Padron Discharging Clinician: Kaitlin Quinteros Patient Disposition: Home, Self-Care Activity: pelvic rest Diet: regular Patient Instructions: Antibiotic Form Stand Alone Forms: General Discharge Information Follow-up/Referrals: Kaitlin Quinteros CNM [Certified Nurse Grape Picker] - 4 Weeks Discharge Medications: Continued prenat.vits,subhash,fax-smwn-kouyc Tablet 1 tablet PO DAILY ferrous sulfate 143 mg (45 mg iron) Tablet Extended Release 143 mg PO DAILY Advair HFA 115-21 mcg/actuation Hfa Aerosol Inhaler 2 puff INHALATION BID Date of admission: 01/19/22 06:03 Primary Care Provider: Radha,Monster Funk Admitting Provider: Flaco Padron Attending physician on admission: Flaco Padron Condition: Stable
--- NOTE | 2022-01-20 10:41 | WPDANLDPN2 ---
Anes-Prog Note L&D Date/Time: 01/20/22 10:41 Neuro status: Neuro function grossly intact. Vital Signs: Last Vital Signs Temp 36.3 C L 01/20/22 09:00 Pulse 88 01/20/22 09:00 Resp 18 01/20/22 09:00 BP 114/69 01/20/22 09:00 Pulse Ox 100 01/20/22 09:00 O2 Del Method Room Air 01/19/22 17:35 Pain score (VAS): 0 I/O: Intake & Output 01/19/22 01/20/22 01/20/22 23:59 07:59 15:59 Intake Total 500 Output Total 350 850 200 Balance 150 -850 -200 Patient feedback: Patient satisfied with anesthetic care.
--- NOTE | 2022-01-20 15:58 | PC.NURSE ---
Patient was given the opportunity to view the discharge video Mother & Baby Care, The First Two Weeks and to ask questions. Patient declined viewing the video and has been given the mother/baby guide for home reference.
--- NOTE | 2022-01-20 15:59 | PC.NURSE ---
0835-Rochelle Quinteros CNM at pts bedside to remove Jorden Balloon; pt tolerated well.
[2022-01-21 14:40] LABS: Rapid Plasma Reagin Non-Reactive (NonReactive)
[2022-01-22 12:06] VITALS: BP 114/79; PULSE 101; RESP 20; TEMP 36.8; O2SAT 99
== END 2022-01-20 18:00 | disposition home or self-care (01) | DRG 807 ==
LOC: ANHLDR 06:07 → ANHOB2 17:04
PROVIDERS: Admitting Provider Obstetrics & Gynecology; PCP Family Medicine; Referring Provider Advanced Practice Midwife; Visit Provider Obstetrics & Gynecology
DX: O99.824 Streptococcus B carrier state complicating childbirth (principal); Z37.0 Single live birth; O70.1 Second degree perineal laceration during delivery; O69.81X0 Labor and delivery complicated by cord around neck, without compression, not applicable or unspecified; O67.8 Other intrapartum hemorrhage; O72.1 Other immediate postpartum hemorrhage; Z3A.39 39 weeks gestation of pregnancy
CPT/HCPCS: 36415; 85014; 85018; 85025; 85027; 85380; 85384; 85610; 85730; 86592; 86850; 86900; 86901; 86920; A9270; J0290; J2210; J2405; J2590; J2795; J7120

== ENCOUNTER 2022-12-04 01:49 | Day surgery (SDC) | payer BC, SELFPAY ==
[2022-11-29 09:23] VITALS: BMI 28.5
--- NOTE | 2022-11-29 09:36 | PC.NURSE ---
Report to the Outpatient Waiting Room, entrance under the green pavilion located off [facility], at time 6am on date 12/04/22. Planned Procedure Time: 730 Time changes happen often and if your time is changed the preop area will call you the afternoon before. - You and your visitor will be asked to self-screen and do not enter if you have any COVID symptoms. - A mask is optional within the hospital at this time. Patients may have clear liquids (water, carbonated beverages, clear teas, apple juice) until 3 hours prior to surgery with a maximum of 20 ounces. - No food from midnight until time of surgery - Infants may have breast milk until 4 hours before surgery, infant formula 6 hours prior to surgery. - Children will be allowed to drink immediately following surgery. If applicable, please bring a bottle or sippy cup to assist with drinking. Juice, water, soda, and popsicles are readily available. For infants on formula, please bring formula the day of surgery. Pacifiers are allowed. Take the following medications with a SIP of water the morning of surgery: __NA unless prn inhaler needed DO NOT STOP ANY OF YOUR OTHER PRESCRIPTION MEDICATIONS PRIOR TO SURGERY ?EXCEPT THE FOLLOWING Medications to discontinue per physician ____NA Date to take last dose____NA Please no make-up, nail uzbek, hairspray, perfume, deodorant, or body powder the day of surgery. No jewelry (including any body piercings) or valuables the day of surgery, leave them at home. Please take a shower or bath the night before, or the morning of, surgery with an antibacterial soap. Wear comfortable, loose fitting clothing. Children are encouraged to wear pajamas. - Jewelry must be removed prior to entering the operating room. Rings and piercings that are not removed may be cut off. - The hospital will not accept responsibility for valuables. - Please leave all valuables, including medications, at home the day of surgery. If you are going home after surgery, a licensed wheelchair van driver must drive you home. - NO public transportation without another adult if you receive anesthesia. - We recommend that an adult stay with you for 24 hours following discharge. - We also recommend that you do not drive, make important decision, drink alcoholic beverages, or take any drugs that were not prescribed by your health care provider for at least 24 hours after your discharge time. Follow any additional instructions given to you from your surgeon. If you or anyone in your household have experienced Covid symptoms in the past week, please notify your surgeon or the nurse liaison at the phone number below for possible testing. Telephone instructions given to patient Heydi, and asked if any additional questions and then verbalized understanding. Patient advised to call surgeon office or pre surgery nurse liaison [phone] if any additional questions.
[2022-12-04] VITALS (11 sets, daily range): BP systolic 100–134; BP diastolic 56–78; PULSE 67–98; RESP 12–20; TEMP 36.6–36.7; O2SAT 96–100
--- NOTE | 2022-12-04 06:30 | WPDANESEPPF ---
Anes - Initial Pre Proc Eval Procedure: Operation Date: 12/04/22 07:30 Proposed Procedures p Hysteroscopy with Mervat Endometrial Ablation, Bilateral Laparoscopic Salpingectomy - Flaco Padron MD Date/Time: 12/04/22 06:30 Surgeon: Flaco Padron MD Pre Op Diagnosis: Menorrhagia, Desire Sterilization Patient Data Age: 32 Gender: F Height: 1.65 m Weight: 77.7 kg Allergies Allergy/AdvReac Type Severity Reaction Status Date / Time codeine AdvReac Nausea and Verified 11/29/22 09:19 Vomiting Home Medications Medication Instructions Recorded Confirmed Type fluticasone propionate 115 2 puff inhalation PRN 12/31/21 11/29/22 History mcg-salmeterol 21 mcg/actuation HFA inhaler (Advair HFA) albuterol 90 mcg/actuation aerosol 90 mcg inhalation PRN 11/29/22 11/29/22 History inhaler Patient hx anesthesia problems: none Family hx anesthesia problems: none Results Review: All pre-operative results and documents have been reviewed as part of the pre-operative evaluation. [facility] Past Medical History Medical History (Updated 12/04/22 @ 06:30 by Quan Goodrich MD) Asthma Overweight Surgical History Surgical History (Updated 12/04/22 @ 06:30 by Quan Goodrich MD) History of appendectomy Family History Family History Grandparent Cancer Pacemaker Type 2 diabetes mellitus Kidney stones Mother Hypothyroidism Social History Social History Smoking status: Never smoker Second hand tobacco smoke exposure: No Substance use: never Substance use type: does not use Living arrangements: with family Spiritual care concerns: No Anes - Eval Final PreProcedure Day of Procedure 12/04/22 06:30 Patient weight: overweight Heart: regular rate and rhythm Lungs: clear to auscultation Airway: Mallampati scale class II Neurological: alert and oriented Last oral intake: >/= 8 hours ASA classification: II Emergent: no Anesthetic plan: proceed Anesthesia type and monitoring: general ETT and standard monitoring Results Review: All pre-operative results and documents have been reviewed as part of the pre-operative evaluation. Informed Consent: The patient's anesthetic plan and its attendant risks and benefits were discussed with the patient/family/POA. Questions were solicited and answers provided to the satisfaction of the patient/family/POA.
[2022-12-04] MEDS: LACTATED RINGERS 1,000 ML 30 ML IV CONT ×2 (06:50→08:58)
[2022-12-04] MEDS: ACETAMINOPHEN 500 MG TABLET 1000 MG PO (07:10)
[2022-12-04] MEDS: KETOROLAC 15 MG/ML VIAL (*BKC) IV PUSH (07:10)
--- NOTE | 2022-12-04 07:21 | WPDHPUPDATE1 ---
History and Physical Update Update Date/Time: 12/04/22 07:21 History and Physical has been reviewed, including an updated exam of the patient. There are NO changes in the patient's condition. Risks, benefits, and alternatives have been discussed and questions answered. Patient agrees to proceed with procedure.
--- NOTE | 2022-12-04 08:17 | P.OP_ITS ---
Procedure Note - Detailed Date of Procedure 12/04/22 Pre-op Diagnosis Menorrhagia, Desire Sterilization Post-op Diagnosis Same Procedure Performed Laparoscopic bilateral salpingectomy with endometrial ablation and hysteroscopy. Surgeon Flaco Padron MD Anesthesia General Indications Menorrhagia, female sterilization Findings Normal pelvic anatomy, normal vulva, vagina and cervix Description of Procedure Patient was taken the operating room. She has prepped draped in the dorsal lithotomy position after induction of general anesthesia. A 5 mm abdominal incision was made in left upper quadrant of the abdomen with scalpel. A 5 mm trocars inserted the intra-abdominal cavity under direct visualization of the scope. Pneumoperitoneum was achieved. A 5 mm periumbilical incision was made using a scalpel on the abdominal scan. A 5 mm trocar was inserted the intra- abdominal cavity under visualization of the scope. A 5 mm incision made left lower quadrant of the abdomen. A 5 mm trocar was inserted the intra-abdominal cavity and direct visualization of the scope. The bilateral fallopian tubes were removed. The paratubal tissue in the area of the uterus was grasped with the LigaSure cautery and transected after being cauterized. The paratubal tissue from the ovary to the uterine cornu was cauterized and transected with LigaSure cautery. This was all done in a bilateral fashion. The tube was transected at the area of the uterine cornua and the tubes was removed through the 5 mm trocar site. The pneumoperitoneum was reduced. The trocars were removed. The skin was closed with subcuticular 4 Monocryl and covered with Dermabond. Our attention was then turned to the endometrial ablation portion of the procedure. A speculum was placed in the vagina. The cervix was grasped with a tenaculum. The cervix was dilated to approximately 8 mm with Jurado dilators. The hysteroscope was inserted. And the below findings were noted. All of the intrauterine surfaces were curettaged with a medium-size curette and the specimens were collected. Measurements of the cervix were taken using the uterine sound and the hysteroscope. The intrauterine cavity measurements were entered into the handpiece. The device was inserted into the intrauterine cavity and the array was expanded. The balloon cuff was inflated. When an adequate seal was formed the safety and energy cycles were initiated and completed. The array was collapsed, the balloon was deflated. The insert was withdrawn. The hysteroscope was reinserted and a well desiccated intrauterine cavity was observed. The patient was taken recovery room stable condition. Sponge lap and needle counts were correct x2. She tolerated the procedure well. Pathology Yes Complications No immediate complications Condition Stable Disposition PACU
[2022-12-04] MEDS: fentaNYL CITRATE INJ (*CRX) 100 MCG/2 ML VIAL 25 MCG IV PUSH (08:30)
[2022-12-04] MEDS: ONDANSETRON INJ 4 MG/2 ML VIAL IV PUSH (08:44)
[2022-12-04] MEDS: SCOPOLAMINE 1.5 MG PATCH TRANSDERM (09:27)
[2022-12-04] MEDS: diphenhydrAMINE HCl INJ 50 MG/ML VIAL 25 MG IV PUSH (09:27)
== END 2022-12-04 10:26 | disposition home or self-care (01) ==
PROVIDERS: PCP Family Medicine; Visit Provider Obstetrics & Gynecology
PROC: 0UDB8ZZ Extraction of Endometrium, Via Natural or Artificial Opening Endoscopic (ICD-10-PCS; CPT 58558; principal; 2022-12-04 07:30)
DX: N92.0 Excessive and frequent menstruation with regular cycle (principal); Z30.2 Encounter for sterilization; J45.909 Unspecified asthma, uncomplicated; Z79.51 Long term (current) use of inhaled steroids
CPT/HCPCS: 58563; 58661; 88302; 88305; A9270; J1100; J1200; J1885; J2250; J2405; J2704; J3010; J7120

== ENCOUNTER 2025-02-13 18:57 | Emergency (ER) | payer BC, SELFPAY ==
--- NOTE | ~2025-02-13 | CT_ITS ---
EXAMINATION: CT abdomen pelvis w con DATE: 02/13/2025 23:57 INDICATION: Upper abdominal pain TECHNIQUE: Computed tomography (CT) of the abdomen and pelvis was performed with 100 mL Omnipaque-350 intravenous contrast. Automated exposure control and iterative reconstruction technique were employed. The dose-length product was 579.88 mGy-cm. COMPARISON: None FINDINGS: Lung bases are clear. Heart size is normal. No pericardial or pleural effusion. Gallbladder, spleen, pancreas, bilateral adrenal glands and kidneys are normal. 1.7 cm hypodense lesion at the caudal right hepatic lobe with small focus of central enhancement. The appendix is not visualized and there are small densities along the tip the cecum suggesting prior appendectomy. Bowels are otherwise normal with no obstruction. Bladder, uterus and right adnexa are unremarkable. Prominent left parametrial vessels and left gonadal vein which can be seen with pelvic vascular congestion syndrome. No free intraperitoneal gas or fluid. No pathologically enlarged abdominal or pelvic lymphadenopathy. Bones are unremarkable. IMPRESSION: 1. No acute intra-abdominal/pelvic process. 2. Indeterminate 1.7 cm lesion in the right hepatic lobe which given patient age and in the absence of known liver disease or primary malignancy is most likely benign or potentially an atypical centrally enhancing hemangioma but would recommend further evaluation with pre and postcontrast MRI. Reviewed, dictated and finalized at location A. IMPRESSION: 1. No acute intra-abdominal/pelvic process. 2. Indeterminate 1.7 cm lesion in the right hepatic lobe which given patient ag e and in the absence of known liver disease or primary malignancy is most likel y benign or potentially an atypical centrally enhancing hemangioma but would re commend further evaluation with pre and postcontrast MRI.
[2025-02-13 19:00] VITALS: BP 123/76; PULSE 96; RESP 14; TEMP 36.4; O2SAT 100
[2025-02-13 21:32] VITALS: BP 117/71; PULSE 81; RESP 18; TEMP 36.8; O2SAT 98
[2025-02-13 22:00] VITALS: BP 122/74; PULSE 85; RESP 13; O2SAT 100
[2025-02-13 22:52] LABS: Hematocrit 40.3 % (37.0-47.0); Hemoglobin 13.4 g/dL (12.0-15.0); Immature Granulocyte Percent A 0.3 % (0-0.5); Lymphocytes Absolute Auto 2.96 K/mm3 (0.9-3.2); Mean Corpuscular HGB Conc 33.3 g/dl (32-36); Mean Corpuscular Hemoglobin 29.2 pg (26-34); Mean Corpuscular Volume 87.8 fl (80-100); Nucleated Red Blood Cells Absolute Auto 0.000 K/mm3 (0.0-0.012); Nucleated Red Blood Cells Perc 0.0 % (0.0-0.2); Platelet Count Result 238 k/mm3 (150-375); Red Blood Count 4.59 M/mm3 (4.2-5.4); White Blood Count 9.5 K/mm3 (4.5-10.0)
[2025-02-13 22:57] LABS: BEDSIDEPREGUCG Negative (Negative)
[2025-02-13 23:02] LABS: Add Urine Microscopic? YES; Appearance Urine Clear (Clear); Glucose Urine UA Negative (Negative); Leukocyte Esterase Ur Trace LEU/UL (Negative); Nitrate Urine Negative (Negative); Non Pathogenic Casts 0-2; Specific Grav Ur 1.017 (1.001-1.035)
[2025-02-13 23:10] LABS: Alanine Aminotransferase 20 U/L (6-35); Albumin Level 4.8 g/dL (3.5-5.1); Alkaline Phosphatase 81 U/L (38-126); Anion Gap 7 mmol/L (4-12); Aspartate Amino Transferase 29 U/L (14-36); Bilirubin,Total 0.6 mg/dL (0.2-1.3); Blood Urea Nitrogen 20 mg/dL (7-17); Calcium 9.1 mg/dL (8.4-10.2); Carbon Dioxide 24 mmol/L (22-30); Chloride 103 mmol/L (98-107); Estimated CRCL calculation 105 ml/min; Estimated Glomerular Filt Rate > 60; Glucose 94 mg/dL (65-110); Lipase 104 U/L (23-300); Potassium 4.1 mmol/L (3.4-5.0); Sodium 134 mmol/L (137-145); Total Protein 8.5 g/dL (6.3-8.2)
[2025-02-13] MEDS: FAMOTIDINE 20 MG/2 ML VIAL IV PUSH (23:33)
[2025-02-13] MEDS: BELLADONNA ALK/PHENOB ELIX 10 ML, MAG HYDROX/ALUMINUM HYD/SIMETH 30 ML, LIDOCAINE 2% VI... PO (23:36)
[2025-02-14 00:15] VITALS: BP 116/76; PULSE 82; RESP 16; O2SAT 99
--- NOTE | 2025-02-14 00:35 | ED_ITS ---
HPI - Abdominal Pain General Chief Complaint: Abdominal Pain Stated Complaint: abd pain Time Seen by Provider: 02/13/25 22:07 Source: patient Mode of arrival: ambulatory Limitations: no limitations History of Present Illness HPI narrative: Patient is a 34-year-old female who presents the ED with report of abdominal pain. Patient reports having diffuse and upper abdominal pain for the past 1.5 weeks. Pain worse with eating large meals, denies worsening with certain foods. States she has been having increased heartburn symptoms, as well as diffuse cramping throughout her abdomen. States she tried to take some Tums at home without improvement. Otherwise does not take anything for acid reflux. Denies nausea, vomiting. Reports alternating diarrhea/constipation, but states this is not abnormal for her. Denies fevers, urinary symptoms. Related Data Home Medications ?Medication ?Instructions ?Recorded ?Confirmed ?Last Taken ?Type fluticasone propionate 115 2 puff inhalation PRN 12/3112/04/22 01/19/22 07:03 History mcg-salmeterol 21 mcg/actuation HFA inhaler (Advair HFA) albuterol 90 mcg/actuation aerosol 90 mcg inhalation P RN 11/29/22 12/04/22 Unknown History inhaler Allergies Allergy/AdvReac Type Severity Reaction Status Date / Time codeine AdvReac Nausea and Verified 02/13/25 19:03 Vomiting Review of Systems 2 Review of Systems: All systems reviewed & are unremarkable except as noted in HPI. All systems reviewed & are unremarkable except as noted in HPI and below PMFSH Past Medical History Medical History Overweight Asthma Surgical History Surgical History History of appendectomy Family History Family History Grandparent Cancer Pacemaker Type 2 diabetes mellitus Kidney stones Mother Hypothyroidism Social History Social History Smoking status: Never smoker Second hand tobacco smoke exposure: No Substance use: never Substance use type: does not use Living arrangements: with family Spiritual care concerns: No Exam 2 Narrative: GENERAL: Well appearing, well-nourished, non-toxic, in no acute distress. HEAD: Normocephalic, atraumatic. RESPIRATORY: Airway patent, respirations nonlabored. Clear to auscultation bilaterally, no rales, rhonchi, wheezing. CARDIOVASCULAR: Regular rate and rhythm without murmurs, rubs, or gallops. ABDOMINAL: Soft, mild diffuse tenderness throughout abdomen, no significant focal tenderness, nondistended. Normoactive BS. MUSCULOSKELETAL: Moves all extremities. No gross deformities. SKIN: Warm, dry, normal color. NEURO: A&O X3. Speech clear. Cranial nerves II-XII grossly intact. Steady gait. No ataxic movements. PSYCHIATRIC: Appropriate mood and affect. Normal interaction. Course Vital Signs Vital signs: Vital Signs Temperature 97.6 F 02/13/25 19:00 Pulse Rate 96 02/13/25 19:00 Respiratory Rate 14 02/13/25 19:00 Blood Pressure 123/76 02/13/25 19:00 Pulse Oximetry 100 02/13/25 19:00 Oxygen Delivery Room Air 02/13/25 19:00 Temperature 98.2 F 02/13/25 21:32 Pulse Rate 85 02/13/25 22:00 Respiratory Rate 13 02/13/25 22:00 Blood Pressure 122/74 02/13/25 22:00 Pulse Oximetry 100 02/13/25 22:00 Oxygen Delivery Room Air 02/13/25 19:00 MDM - Abdominal Pain MDM Narrative Medical decision making narrative: Patient presented to ED with 1.5 week history of upper abdominal pain, acid reflux symptoms, cramping. Vital signs are stable upon arrival. Patient is in no acute distress. Cbc without leukocytosis or anemia. CMP also unremarkable. Normal electrolytes, stable kidney function. Normal LFTs and lipase. UA without signs of infection. Urine is negative. CT scan of abdomen/pelvis was obtained acute findings. Showing right liver lobe lesion. I made patient aware of this and advised will need further imaging as an outpatient. Patient is feeling improved after Pepcid and GI cocktail in the ED. Discussed likelihood of gastritis/GERD symptoms. Will start patient on PPI. Will also prescribe Bentyl for home use. Will refer to GI for further evaluation if needed. Discussed dietary modifications. Given return precautions. Discharged in stable condition. Medical Records Attestation: I reviewed the patient's medical records. Lab Data Attestation: I reviewed the patient's lab results. 02/13/25 22:47 02/13/25 22:47 Labs: Lab Results 02/13/25 02/13/25 02/13/25 Range/Units 22:47 22:52 22:55 WBC 9.5 (4.5-10.0) K/mm3 RBC 4.59 (4.2-5.4) M/mm3 Hgb 13.4 D (12.0-15.0) g/dL Hct 40.3 (37.0-47.0) % MCV 87.8 (80-100) fl MCH 29.2 (26-34) pg MCHC 33.3 (32-36) g/dl RDW 13.2 (11.5-14.5) % Plt Count 238 (150-375) k/mm3 MPV 9.8 (7.4-10.4) fl Immature Gran % (Auto) 0.3 (0-0.5) % Neut % (Auto) 58.0 (45.5-73.1) % Lymph % (Auto) 31.3 (18.3-44.2) % [place] % (Auto) 6.3 (2.6-8.5) % Eos % (Auto) 3.1 (0-4.4) % Baso % (Auto) 1.0 (0.2-1.2) % Lymph # (Auto) 2.96 (0.9-3.2) K/mm3 [place] # (Auto) 0.6 (0.1-0.6) K/mm3 Eos # (Auto) 0.3 (0-0.3) K/mm3 Baso # (Auto) 0.1 (0.0-0.1) K/mm3 Abs Immat Gran (auto) 0.03 (0.00-0.031) K/mm3 Absolute Neuts (auto) 5.5 (1.3-6.7) K/mm3 Absolute Nucleated RBC 0.000 (0.0-0.012) K/mm3 Nucleated RBC % 0.0 (0.0-0.2) % Sodium 134 L (137-145) mmol/L Potassium 4.1 (3.4-5.0) mmol/L Chloride 103 (98-107) mmol/L Carbon Dioxide 24 (22-30) mmol/L Anion Gap 7 (4-12) mmol/L BUN 20 H (7-17) mg/dL Creatinine 0.67 L (0.7-1.0) mg/dL Estim Creat Clear Calc 105 ml/min Estimated GFR > 60 (59 - ) Glucose 94 (65-110) mg/dL Calcium 9.1 (8.4-10.2) mg/dL Total Bilirubin 0.6 (0.2-1.3) mg/dL AST 29 (14-36) U/L ALT 20 (6-35) U/L Alkaline Phosphatase 81 (38-126) U/L Total Protein 8.5 H (6.3-8.2) g/dL Albumin 4.8 (3.5-5.1) g/dL Lipase 104 (23-300) U/L Urine Color Yellow (Yellow) Urine Appearance Clear (Clear) Urine pH 5.5 (5.0-9.0) Ur Specific [place] 1.017 (1.001-1.035) Urine Protein Negative (Negative) mg/dL Urine Glucose (UA) Negative (Negative) mg/dL Urine Ketones Negative (Negative) mg/dL Ur Blood (Man) Negative (Negative) Urine Nitrate Negative (Negative) Urine Bilirubin Negative (Negative) Urine Urobilinogen 0.2 (<2.0) mg/dL Leukocyte Esterase Rfl Trace H (Negative) LIANNA/UL Urine RBC 0-2 (0-2) /hpf Urine WBC 0-5 (0-3) /hpf Ur Squamous Epith Cells Few (Few) /hpf Urine Bacteria None seen /hpf Urine Casts 0-2 POC Urine HCG, Qual Negative (Negative) Imaging Data Attestation: I personally reviewed and interpreted this imaging study as follows: Radiologist's impression: STAT RAD CT abd/pelvis: No acute finding. Recommend MRI liver for right lobe 1.7 cm indeterminate hypodensity. Discharge Plan Discharge Clinical Impression: Intermittent upper abdominal pain GERD (gastroesophageal reflux disease) Qualifiers: Esophagitis presence: without esophagitis Qualified Code(s): K21.9 - Gastro- esophageal reflux disease without esophagitis Patient Disposition: Home Condition: Stable Instructions: Antibiotic Form, Diet for Stomach Ulcers and Gastritis (ED), GERD (Gastroesophageal Reflux Disease) (ED), Abdominal Pain (ED) Additional Instructions: Your workup here was reassuring. Recommend Tylenol, Bentyl as needed for further abdominal discomfort. Recommend taking Protonix daily for acid reflux. Avoid foods that are very greasy, spicy, fatty, acidic. Stay well hydrated. Follow-up with your primary care doctor and/or GI for further evaluation. Return to the ED for new or worsening concerns. Your CT imaging did show a possible abnormality of your liver. You will need further imaging of this. Follow-up with your primary care doctor for further evaluation. Patient Language: Slovak Prescriptions: New dicyclomine 20 mg tablet 20 mg PO TID PRN (Reason: Abdominal Discomfort) Qty: 15 0RF pantoprazole [Protonix] 40 mg tablet,delayed release (DR/EC) 40 mg PO HS 28 Days Qty: 28 0RF No Action fluticasone propion-salmeterol [Advair HFA] 115-21 mcg/actuation Hfa Aerosol Inhaler 2 puff INHALATION PRN albuterol 90 mcg/actuation Aerosol 90 mcg INHALATION PRN oxycodone-acetaminophen 5-325 mg tablet 1 tablet PO Q4H PRN (Reason: pain) Qty: 10 0RF Follow-up/Referrals: Shante Holland DO [Physician, Family Practice] Referral Note: PRIMARY CARE PHYSICIAN,[facility] [Primary Care Provider, Internal Medicine] Time of Disposition: 02:15
[2025-02-14 02:36] VITALS: BP 124/80; PULSE 79; RESP 19; O2SAT 100
[2025-02-14 02:41] VITALS: BP 124/80; PULSE 79; RESP 19; O2SAT 100
== END 2025-02-14 02:44 | disposition home or self-care (01) ==
PROVIDERS: Emergency Provider Physician Assistant
DX: R10.10 Upper abdominal pain, unspecified (principal); K21.9 Gastro-esophageal reflux disease without esophagitis; J45.909 Unspecified asthma, uncomplicated; E66.3 Overweight; Z68.28 Body mass index [BMI] 28.0-28.9, adult; K76.9 Liver disease, unspecified
CPT/HCPCS: 36415; 74177; 80053; 81001; 81025; 83690; 85025; 96374; 99284; A9270; Q9967